=== PATIENT | female | born 1955 | race Caucasian/White ===

== ENCOUNTER 2021-08-26 01:56 | Inpatient (IN) ==
[2021-08-26] MEDS ORDERED: Naloxone 0.4 MG/ML INJ IVP PRN (03:34)
[2021-08-26] MEDS ORDERED: Ondansetron 4 MG/2 ML VIAL IVP PRN (03:34)
[2021-08-26] MEDS: Lidocaine Drip 2 GM/500 ML IV.SOLN IVC SCH (04:00)
[2021-08-26] MEDS: Amiodarone Premix 360 MG/200 ML BAG IVC ONE ×2 (04:00→08:00)
[2021-08-26] MEDS ORDERED: 0.9 % Sodium Chloride 500 ML IVC ONE (04:00)
[2021-08-26] MEDS ORDERED: 0.9 % Sodium Chloride 500 ML ONE (04:05)
[2021-08-26] MEDS ORDERED: Artificial Tears SOLN 15 ML BOTTLE BOTH EYES PRN (04:19)
[2021-08-26] MEDS: Norepinephrine 4 MG/254 ML IV.SOLN IVC SCH ×2 (04:22→11:30)
[2021-08-26] MEDS ORDERED: Perflutren Lipid Microsphere 1.3 ML in 0.9 % Sodium Chloride 8.7 ML IVP PRN (04:24)
[2021-08-26 04:29] LABS: ABG Base Excess 1 mEq/L (-2 to 3); ABG HCO3 27 mEq/L (21-27); ABG Oxygen Saturation 94 % (95-98); ABG PCO2 46 mmHg (35-45); ABG PH 7.37 pH Units (7.32-7.45); ABG PO2 73 mmHg (85-104); ABG TCO2 28 mEq/L (20-26); Blood Gas VT 350 cc
[2021-08-26] MEDS: FentaNYL (PF) 1,000 MCG/100 ML IV.SOLN IVC SCH ×2 (04:30→14:59)
[2021-08-26] MEDS ORDERED: 0.9 % Sodium Chloride 1,000 ML ONE ×3 (04:34→05:27)
[2021-08-26 04:53] LABS: VBG Ionized Calcium 0.88 mmol/L (1.15-1.35)
[2021-08-26] MEDS ORDERED: ISOVUE-370 200 ML INFUS..BTL ONE ×2 (05:08→05:32)
[2021-08-26] MEDS ORDERED: Nitroglycerin 1,000 MCG/5 ML VIAL IV ONE (05:08)
[2021-08-26] MEDS ORDERED: *HR* Heparin 10,000 UNIT/10 ML VIAL ONE (05:08)
[2021-08-26] MEDS ORDERED: Heparin 1,000 UNITS/500 mL 500 ML ONE ×2 (05:08→05:32)
[2021-08-26 05:10] LABS: Albumin 2.6 g/dL (3.5-5.7); Albumin/Globulin Ratio 0.9 (1.1-2.2); Bilirubin,Direct 0.3 mg/dL (0.0-0.2); Bilirubin,Indirect 0.7 mg/dL (0.0-1.0); Calcium 6.8 mg/dL (8.6-10.3); Chol/HDL Ratio 6.4 (0-4.9); Globulin 2.8 g/dL (2.4-3.5); Magnesium 2.2 mg/dL (1.6-2.6); Phosphorous 3.9 mg/dL (2.7-4.5); Potassium 3.5 mEq/L (3.5-5.1); Total Protein 5.4 g/dL (6.4-8.9); Troponin I 0.63 ng/mL (< 0.04)
[2021-08-26] MEDS: Calcium Gluconate 1gm/50mL 1 GM/50 ML BAG IVPB SCH ×2 (05:14→08:25)
[2021-08-26 05:30] LABS: Thyroid Stimulating Hormone 0.037 mcIU/mL (0.340-5.600); Triiodothyronine (T3) Free 5.55 pg/mL (2.50-3.90)
[2021-08-26] MEDS: Midazolam HCl 50 MG/100 ML IV.SOLN IVC SCH ×2 (05:30→20:35)
[2021-08-26 05:43] LABS: Adenovirus Not Detected (Not Detect); Bordetella Pertussis Not Detected (Not Detect); Chlamydophila pneumoniae Not Detected (Not Detect); Coronavirus 229E Not Detected (Not Detect); Coronavirus HKU1 Not Detected (Not Detect); Coronavirus NL63 Not Detected (Not Detect); Coronavirus OC43 Not Detected (Not Detect); Human Metapneumovirus Not Detected (Not Detect); Human Rhinovirus/Enterovirus Not Detected (Not Detect); Influenza A Subtype 2009 H1 Not Detected (Not Detect); Influenza B Not Detected (Not Detect); Mycoplasma pneumoniae Not Detected (Not Detect); Parainfluenza Virus 1 Not Detected (Not Detect); Parainfluenza Virus 2 Not Detected (Not Detect); Parainfluenza Virus 3 Not Detected (Not Detect); Parainfluenza Virus 4 Not Detected (Not Detect); Respiratory Syncytial Virus Not Detected (Not Detect); SARS-CoV-2 Not Detected (Not Detect)
[2021-08-26 05:58] LABS: Basophils % 0.1 %; Eosinophils # 0.1 K/mcL (0.0-0.6); Eosinophils % 0.6 %; Hematocrit 35.7 % (35.3-44.9); Immature Granulocytes % 0.5 % (0-4); Lymphocytes # 2.2 K/mcL (0.6-4.6); Lymphocytes % 14.2 %; Mean Corpuscular HGB Conc 31.7 g/dL (31.6-35.5); Mean Corpuscular Hemoglobin 27.3 pg (28.0-33.3); Mean Corpuscular Volume 86.2 fL (83.0-100.0); Mean Platelet Volume 11.5 fL (9.4-12.4); Monocytes # 0.7 K/mcL (0.0-1.3); Monocytes % 4.7 %; Platelet Count 210 K/mcL (140-400); Red Blood Count 4.14 M/mcL (3.82-4.97); Segmented Neutrophils % 79.9 %
[2021-08-26 06:20] LABS: Hemoglobin 11.3 g/dL (11.5-15.4); Neutrophils # 12.5 K/mcL (1.6-8.9); White Blood Count 15.7 K/mcL (4.3-11.1)
[2021-08-26] MEDS ORDERED: Amiodarone Premix 360 MG/200 ML BAG IVC ONE (06:45)
[2021-08-26] MEDS: Amiodarone Premix 360 MG/200 ML BAG IVC SCH ×2 (08:00→19:08)
[2021-08-26] MEDS: Artificial Tears SOLN 15 ML BOTTLE BOTH EYES SCH ×4 (09:05→19:45)
[2021-08-26] MEDS: Pantoprazole 40 MG VIAL IVP SCH (09:11)
[2021-08-26] MEDS: Chlorhexidine Rinse 15 ML MOUTHWASH MM SCH ×2 (10:40→19:45)
[2021-08-26 11:07] LABS: INR 2.2; Prothrombin Time 23.9 Seconds (9.4-12.1)
[2021-08-26 11:10] LABS: Activated Partial Thrombo Time 36.1 Seconds (26.0-36.0)
[2021-08-26 11:12] LABS: Magnesium 2.2 mg/dL (1.6-2.6); Phosphorous 5.2 mg/dL (2.7-4.5); Potassium 3.2 mEq/L (3.5-5.1)
[2021-08-26 11:40] LABS: Bilirubin,Urine Negative (Negative); Blood,Urine Large (Negative); Clarity,Urine Turbid (Clear); Color,Urine Yellow (Yellow); Glucose,Urine (UA) 50 mg/dL (Normal); Granular Casts,Urine Few per lpf (None Seen); Hyaline Casts,Urine Many per lpf (None Seen); Ketones,Urine Negative (Negative); Leukocyte Esterase,Urine Negative (Negative); Mucus,Urine Few per lpf (None-Few); Nitrite,Urine Negative (Negative); PH,Urine 6.5 pH Units (5.0-8.0); Protein,Urine >=600 mg/dL (Neg-Trace); RBC,Urine TNTC per hpf (0-3); Renal Epithelial Cells,Urine Few per hpf (None-Few); Specific Gravity,Urine > 1.030 (1.010-1.025); Squamous Epithelial Cell,Urine Few per hpf (None-Few); Transitional Epi Cells,Urine Few per hpf (None-Few); Urobilinogen,Urine Normal (Normal); WBC,Urine TNTC per hpf (0-3)
[2021-08-26] MEDS: Albumin Human 5% 12.5 GM/250 ML IV.SOLN IVC SCH ×2 (12:08→13:10)
[2021-08-26] MEDS ORDERED: *HR* Heparin 5,000 UNIT/ML VIAL IVP PRN (14:12)
[2021-08-26] MEDS ORDERED: *HR* Heparin 5,000 UNIT/ML VIAL IVP ONE (14:12)
[2021-08-26] MEDS: methIMAzole 5 MG TABLET PO SCH (14:50)
[2021-08-26 15:02] LABS: Hemoglobin 10.6 g/dL (11.5-15.4); Mean Corpuscular HGB Conc 30.3 g/dL (31.6-35.5); Mean Corpuscular Hemoglobin 26.4 pg (28.0-33.3); Mean Corpuscular Volume 87.3 fL (83.0-100.0); Mean Platelet Volume 11.2 fL (9.4-12.4); Platelet Count 189 K/mcL (140-400); Red Blood Count 4.01 M/mcL (3.82-4.97); Red Cell Distribution Width 14.2 % (11.5-14.5); White Blood Count 13.2 K/mcL (4.3-11.1)
[2021-08-26 15:10] LABS: INR 2.2; Prothrombin Time 24.6 Seconds (9.4-12.1)
[2021-08-26 15:12] LABS: Activated Partial Thrombo Time 38.1 Seconds (26.0-36.0)
[2021-08-26] MEDS: Heparin 25,000UNIT/250ML 1/2NS 25,000 UNIT/250 ML IV.SOLN IVC SCH (15:48)
[2021-08-26] MEDS: OXcarbazepine 150 MG TABLET PO SCH ×2 (16:13→19:45)
[2021-08-26 18:08] LABS: VBG Ionized Calcium 1.06 mmol/L (1.15-1.35)
[2021-08-26 18:15] LABS: Troponin I 1.27 ng/mL (< 0.04)
[2021-08-26] MEDS ORDERED: Potassium Phosphate 44 MEQ in 0.9 % Sodium Chloride 250 ML IVPB PRN (18:54)
[2021-08-26 18:56] LABS: Potassium 3.1 mEq/L (3.5-5.1)
[2021-08-26] MEDS: Calcium Gluconate 1gm/50mL 1 GM/50 ML BAG IVPB PRN (19:45)
[2021-08-26] MEDS: Potassium Chloride 40 MEQ/200 ML BAG IVPB PRN ×2 (19:45→21:17)
[2021-08-26] MEDS ORDERED: Acetaminophen 325 MG TABLET PO ONE (21:14)
[2021-08-26] MEDS: *HR* Heparin 5,000 UNIT/ML VIAL IVP PRN (23:50)
[2021-08-27] MEDS: Artificial Tears SOLN 15 ML BOTTLE BOTH EYES SCH ×6 (00:02→19:49)
[2021-08-27] MEDS: FentaNYL (PF) 1,000 MCG/100 ML IV.SOLN IVC SCH (01:36)
[2021-08-27 02:54] LABS: Basophils # 0.1 K/mcL (0.0-0.2); Basophils % 0.3 %; Eosinophils # 0.2 K/mcL (0.0-0.6); Eosinophils % 1.2 %; Immature Granulocytes % 0.5 % (0-4); Lymphocytes # 3.1 K/mcL (0.6-4.6); Lymphocytes % 18.9 %; Mean Corpuscular HGB Conc 30.3 g/dL (31.6-35.5); Mean Corpuscular Hemoglobin 26.5 pg (28.0-33.3); Mean Corpuscular Volume 87.3 fL (83.0-100.0); Mean Platelet Volume 11.2 fL (9.4-12.4); Platelet Count 202 K/mcL (140-400); Red Blood Count 3.78 M/mcL (3.82-4.97); Red Cell Distribution Width 14.6 % (11.5-14.5); Segmented Neutrophils % 73.1 %; White Blood Count 16.4 K/mcL (4.3-11.1)
[2021-08-27 02:58] LABS: Calcium 8.3 mg/dL (8.6-10.3); Potassium 3.4 mEq/L (3.5-5.1)
[2021-08-27] MEDS: Norepinephrine 4 MG/254 ML IV.SOLN IVC SCH ×3 (03:00→13:57)
[2021-08-27 03:27] LABS: Phosphorous 5.2 mg/dL (2.7-4.5)
[2021-08-27 03:37] LABS: ABG Ionized Calcium 1.09 mmol/L (1.15-1.35)
[2021-08-27] MEDS: Potassium Chloride 40 MEQ/200 ML BAG IVPB PRN ×3 (04:48→14:07)
[2021-08-27] MEDS: Calcium Gluconate 1gm/50mL 1 GM/50 ML BAG IVPB PRN (04:48)
[2021-08-27 04:52] LABS: ABG Base Excess -1 mEq/L (-2 to 3); ABG HCO3 26 mEq/L (21-27); ABG Oxygen Saturation 92 % (95-98); ABG PCO2 56 mmHg (35-45); ABG PH 7.28 pH Units (7.32-7.45); ABG PO2 73 mmHg (85-104); ABG TCO2 28 mEq/L (20-26); Blood Gas Modality ASSIST CONTROL; Blood Gas VT 350 cc
[2021-08-27] MEDS ORDERED: Calcium Gluconate 1gm/50mL 1 GM/50 ML BAG IVPB PRN (06:02)
[2021-08-27] MEDS: Amiodarone Premix 360 MG/200 ML BAG IVC SCH ×2 (07:51→21:30)
[2021-08-27] MEDS: Chlorhexidine Rinse 15 ML MOUTHWASH MM SCH ×2 (08:06→19:49)
[2021-08-27] MEDS: Folic Acid 1 MG TABLET PO SCH (08:06)
[2021-08-27] MEDS: Mirtazapine 15 MG TABLET PO SCH (08:06)
[2021-08-27] MEDS: Aspirin Enteric Coated 81 MG Tablet PO SCH (08:06)
[2021-08-27] MEDS: methIMAzole 5 MG TABLET PO SCH (08:06)
[2021-08-27] MEDS: Pantoprazole 40 MG VIAL IVP SCH (08:07)
[2021-08-27] MEDS: Lidocaine Drip 2 GM/500 ML IV.SOLN IVC SCH (08:20)
[2021-08-27] MEDS: OXcarbazepine 150 MG TABLET PO SCH ×3 (10:22→19:49)
[2021-08-27] MEDS: Heparin 25,000UNIT/250ML 1/2NS 25,000 UNIT/250 ML IV.SOLN IVC SCH (13:20)
[2021-08-27 13:34] LABS: VBG Ionized Calcium 1.14 mmol/L (1.15-1.35)
[2021-08-27] MEDS: *HR* Heparin 5,000 UNIT/ML VIAL IVP PRN (14:05)
[2021-08-27] MEDS ORDERED: levoFLOXacin 750 MG/150 ML 750 MG/150 ML BAG IVPB SCH (16:00)
[2021-08-27] MEDS: Cefepime HCl 1,000 MG in 0.9 % Sodium Chloride Mini Bag 100 ML IVPB SCH (18:09)
[2021-08-28] MEDS: FentaNYL (PF) 1,000 MCG/100 ML IV.SOLN IVC SCH (01:28)
[2021-08-28] MEDS: Artificial Tears SOLN 15 ML BOTTLE BOTH EYES SCH ×7 (04:00→23:20)
[2021-08-28 04:29] LABS: ABG Base Excess -1 mEq/L (-2 to 3); ABG HCO3 26 mEq/L (21-27); ABG Oxygen Saturation 96 % (95-98); ABG PCO2 53 mmHg (35-45); ABG PO2 96 mmHg (85-104); ABG TCO2 27 mEq/L (20-26); Blood Gas VT 350 cc
[2021-08-28 04:30] LABS: Hematocrit 31.7 % (35.3-44.9); Hemoglobin 9.5 g/dL (11.5-15.4); Mean Corpuscular Hemoglobin 26.1 pg (28.0-33.3); Mean Corpuscular Volume 87.1 fL (83.0-100.0); Mean Platelet Volume 10.8 fL (9.4-12.4); Platelet Count 196 K/mcL (140-400); Red Blood Count 3.64 M/mcL (3.82-4.97); Red Cell Distribution Width 14.8 % (11.5-14.5); White Blood Count 13.9 K/mcL (4.3-11.1)
[2021-08-28 04:47] LABS: Calcium 8.5 mg/dL (8.6-10.3); Magnesium 2.1 mg/dL (1.6-2.6); Potassium 4.5 mEq/L (3.5-5.1)
[2021-08-28 04:52] LABS: VBG Ionized Calcium 1.14 mmol/L (1.15-1.35)
[2021-08-28] MEDS: Midazolam HCl 50 MG/100 ML IV.SOLN IVC SCH (05:08)
[2021-08-28] MEDS: Lidocaine Drip 2 GM/500 ML IV.SOLN IVC SCH (05:09)
[2021-08-28] MEDS: Cefepime HCl 1,000 MG in 0.9 % Sodium Chloride Mini Bag 100 ML IVPB SCH ×2 (05:13→17:02)
[2021-08-28] MEDS: *HR* Heparin 5,000 UNIT/ML VIAL IVP PRN (05:14)
[2021-08-28] MEDS: Amiodarone Premix 360 MG/200 ML BAG IVC SCH (08:30)
[2021-08-28] MEDS: Heparin 25,000UNIT/250ML 1/2NS 25,000 UNIT/250 ML IV.SOLN IVC SCH (09:30)
[2021-08-28] MEDS: Aspirin Enteric Coated 81 MG Tablet PO SCH (09:44)
[2021-08-28] MEDS: Pantoprazole 40 MG VIAL IVP SCH (09:44)
[2021-08-28] MEDS: Chlorhexidine Rinse 15 ML MOUTHWASH MM SCH ×2 (09:44→20:33)
[2021-08-28] MEDS: methIMAzole 5 MG TABLET PO SCH (09:45)
[2021-08-28] MEDS: OXcarbazepine 150 MG TABLET PO SCH ×3 (09:45→20:33)
[2021-08-28] MEDS: Mirtazapine 15 MG TABLET PO SCH (09:45)
[2021-08-28] MEDS: Folic Acid 1 MG TABLET PO SCH (09:45)
[2021-08-28] MEDS ORDERED: Aspirin 81 MG TAB.CHEW GTUBE SCH (11:15)
[2021-08-29] MEDS: Heparin 25,000UNIT/250ML 1/2NS 25,000 UNIT/250 ML IV.SOLN IVC SCH (01:30)
[2021-08-29 03:54] LABS: Basophils % 0.2 %; Eosinophils % 0.1 %; Hematocrit 33.8 % (35.3-44.9); Hemoglobin 10.2 g/dL (11.5-15.4); Immature Granulocytes % 0.8 % (0-4); Lymphocytes # 0.4 K/mcL (0.6-4.6); Lymphocytes % 3.1 %; Mean Corpuscular HGB Conc 30.2 g/dL (31.6-35.5); Mean Corpuscular Hemoglobin 26.8 pg (28.0-33.3); Mean Corpuscular Volume 88.7 fL (83.0-100.0); Mean Platelet Volume 11.2 fL (9.4-12.4); Monocytes # 0.8 K/mcL (0.0-1.3); Monocytes % 6.8 %; Neutrophils # 10.7 K/mcL (1.6-8.9); Nucleated Red Blood Cells 0.4 /100 WBC (0); Platelet Count 211 K/mcL (140-400); Red Blood Count 3.81 M/mcL (3.82-4.97); Red Cell Distribution Width 15.2 % (11.5-14.5)
[2021-08-29 03:54] LABS: VBG Ionized Calcium 1.12 mmol/L (1.15-1.35)
[2021-08-29 04:08] LABS: Magnesium 2.4 mg/dL (1.6-2.6); Phosphorous 7.2 mg/dL (2.7-4.5)
[2021-08-29] MEDS: Artificial Tears SOLN 15 ML BOTTLE BOTH EYES SCH (04:14)
[2021-08-29 04:25] LABS: ABG Base Excess -8 mEq/L (-2 to 3); ABG HCO3 20 mEq/L (21-27); ABG Oxygen Saturation 90 % (95-98); ABG PCO2 48 mmHg (35-45); ABG PH 7.23 pH Units (7.32-7.45); ABG PO2 69 mmHg (85-104); ABG TCO2 22 mEq/L (20-26); Blood Gas Modality ASSIST CONTROL; Blood Gas VT 350 cc
[2021-08-29 04:54] LABS: Troponin I 0.34 ng/mL (< 0.04)
[2021-08-29] MEDS: Norepinephrine 4 MG/254 ML IV.SOLN IVC SCH ×2 (05:10→06:04)
[2021-08-29] MEDS ORDERED: Phenylephrine 50 MG in 0.9 % Sodium Chloride 250 ML IVC SCH (05:15)
[2021-08-29] MEDS: Cefepime HCl 1,000 MG in 0.9 % Sodium Chloride Mini Bag 100 ML IVPB SCH (06:19)
[2021-08-29] MEDS: Midazolam HCl 50 MG/100 ML IV.SOLN IVC SCH (06:40)
[2021-08-29 07:00] LABS: Calcium 8.9 mg/dL (8.6-10.3); Potassium 5.4 mEq/L (3.5-5.1)
== END 2021-08-29 07:03 | disposition expired ==
LOC: ICNU 03:28
PROVIDERS: ADMIT Student in an Organized Health Care Education/Training Program; ATTEND Student in an Organized Health Care Education/Training Program